=== PATIENT | female | born 1950 | race Caucasian/White ===

== ENCOUNTER 2017-08-18 08:42 | Outpatient (CLI) | payer MEDICARE | END 2017-08-18 08:43 | disposition home or self-care (01) | LOC: BICMAMMO 08:42 | PROVIDERS: ATTEND Family Medicine | DX: Z12.31 Encounter for screening mammogram for malignant neoplasm of breast (principal) | CPT/HCPCS: 77063; 77067 ==

== ENCOUNTER 2018-08-21 08:46 | Outpatient (CLI) | payer MEDICARE ==
--- NOTE | 2018-08-21 09:45 | BD ---
EXAM: DEXA bone density examination HISTORY: 68-year-old postmenopausal female for screening COMPARISON: None FINDINGS: L1--bone mineral density 1.069 g/sq cm; T score 0.7 L2--bone mineral density 0.930 g/sq cm; T score -0.9 L3--bone mineral density 0.803 g/sq cm; T score -2.6 L4--bone mineral density 0.915 g/sq cm; T score -1.3 Total L1-L4--bone mineral density 0.929 g/sq cm; T score -1.1 Left femoral neck--bone mineral density0.682; T score -1.5 Total proximal left femur--bone mineral density 0.960; T score 0.1 IMPRESSION: Osteopenia This patient has a 10 year WHO fracture risk of a major osteoporotic fracture of 9.1% and of a hip fracture of 1.1%.
--- NOTE | 2018-08-21 11:48 | MMO ---
Bilateral MAMMO Bilat Screen [facility]. CLINICAL HISTORY: Patient is 68 years old and is seen for screening. The patient has no family history of breast cancer. The patient has no personal history of cancer. The patient has a history of left needle biopsy in August, - benign and left Excisional Biopsy in 2009 - benign. VIEWS: The views performed were: bilateral craniocaudal with tomosynthesis and bilateral mediolateral oblique with tomosynthesis. FILMS COMPARED: The present examination has been compared to prior imaging studies performed at [facility] on 08/05/2011, 08/08/2012, 08/09/2013, 08/12/2014, 08/14/2015, 08/16/2016 and 08/18/2017, and at [facility] on 07/03/2007, 07/17/2008, 07/31/2009, 08/01/2009 and 08/03/2010. MAMMOGRAM FINDINGS: The breasts are heterogeneously dense, which could obscure a lesion on mammography. Finding 1: There are new calcifications with grouped or clustered distribution seen in the CC view only seen in the outer region of the right breast. Finding 2: There are stable benign appearing calcifications seen in both breasts. IMPRESSION: FINDING 1: NEW CALCIFICATIONS IN THE RIGHT BREAST REQUIRE ADDITIONAL EVALUATION. MAGNIFICATION VIEWS ARE RECOMMENDED. THE RESULTS OF THIS EXAM WERE SENT TO THE PATIENT. ACR BI-RADS Category 0 - Incomplete: Need additional imaging evaluation. [facility] will notify the patient of the need for additional imaging services. MAMMOGRAPHY NOTE: 1. A negative mammogram report should not delay a biopsy if a dominant of clinically suspicious mass is present. 2. Approximately 10% to 15% of breast cancers are not detected by mammography. 3. Adenosis and dense breasts may obscure an underlying neoplasm.
== END 2018-08-21 08:47 | disposition home or self-care (01) ==
LOC: BICMAMMO 08:46
PROVIDERS: ATTEND Family Medicine
DX: Z12.31 Encounter for screening mammogram for malignant neoplasm of breast (principal); Z78.0 Asymptomatic menopausal state; R92.1 Mammographic calcification found on diagnostic imaging of breast; M81.0 Age-related osteoporosis without current pathological fracture; M85.852 Other specified disorders of bone density and structure, left thigh
CPT/HCPCS: 77063; 77067; 77080

== ENCOUNTER 2018-08-24 13:14 | Outpatient (CLI) | payer MEDICARE ==
--- NOTE | 2018-08-24 13:58 | MMO ---
Right Breast MAMMO Unilat Diag [facility]. CLINICAL HISTORY: Patient is 68 years old and is seen for diagnostic exam. The patient has a history of left needle biopsy in August, - benign and left Excisional Biopsy in 2009 - benign. VIEWS: The views performed were: . FILMS COMPARED: The present examination has been compared to prior imaging studies performed at [facility] on 08/05/2011, 08/08/2012, 08/09/2013, 08/12/2014, 08/14/2015, 08/16/2016, 08/18/2017 and 08/21/2018, and at [facility] on 07/03/2007, 07/17/2008, 07/31/2009, 08/01/2009 and 08/03/2010. MAMMOGRAM FINDINGS: The breast is heterogeneously dense, which could obscure a lesion on mammography. The new calcs in the right outer breast (CC view only) are indeterminate and should be biopsied. IMPRESSION: FINDING IN THE RIGHT BREAST IS SUSPICIOUS. A STEREOTACTIC BREAST BIOPSY IS RECOMMENDED. THE RESULTS OF THIS EXAM WERE SENT TO THE PATIENT. ACR BI-RADS Category 4 - Suspicious abnormality - biopsy should be considered D/W pt in person @ 1355 hrs MAMMOGRAPHY NOTE: 1. A negative mammogram report should not delay a biopsy if a dominant of clinically suspicious mass is present. 2. Approximately 10% to 15% of breast cancers are not detected by mammography. 3. Adenosis and dense breasts may obscure an underlying neoplasm.
== END 2018-08-24 13:15 | disposition home or self-care (01) ==
LOC: BICMAMMO 13:14
PROVIDERS: ATTEND Family Medicine
DX: R92.1 Mammographic calcification found on diagnostic imaging of breast (principal)
CPT/HCPCS: 77065; G0279

== ENCOUNTER → 2018-09-07 | Day surgery (SDC) | payer MEDICARE ==
--- NOTE | 2018-09-07 08:55 | MMO ---
Right Breast MAMMO Unilat Diag [facility]. CLINICAL HISTORY: Patient is 68 years old and is seen for diagnostic exam. The patient has a history of left needle biopsy in August, - benign and left Excisional Biopsy in 2009 - benign. VIEWS: The views performed were: . FILMS COMPARED: The present examination has been compared to prior imaging studies performed at [facility] on 08/16/2016, 08/18/2017, 08/21/2018, 08/24/2018 and 09/07/2018. MAMMOGRAM FINDINGS: The breast is heterogeneously dense, which could obscure a lesion on mammography. There are stable calcifications with grouped or clustered distribution seen in the outer region of the right breast. Additional imaging was performed to verify location for needle localization. IMPRESSION: STABLE CALCIFICATIONS IN THE RIGHT BREAST ARE SUSPICIOUS. BIOPSY IS RECOMMENDED. THE RESULTS OF THIS EXAM WERE SENT TO THE PATIENT. ACR BI-RADS Category 4 - Suspicious abnormality - biopsy should be considered MAMMOGRAPHY NOTE: 1. A negative mammogram report should not delay a biopsy if a dominant of clinically suspicious mass is present. 2. Approximately 10% to 15% of breast cancers are not detected by mammography. 3. Adenosis and dense breasts may obscure an underlying neoplasm.
--- NOTE | 2018-09-07 11:26 | MMO ---
RIGHT UNILATERAL DIAGNOSTIC MAMMOGRAM: Date: 09/07/18 HISTORY: Breast calcifications which were recommended for biopsy, which were felt to be new calcifications whe n compared to old exams. TECHNIQUE: The patient was initially placed on the stereotactic machine, but the calcifications which are very f aint are never visualized on the stereotactic unit. The patient was subsequently transferred to [facility] the mammogram to assure that the calcifications were still present. The calcifications are confirme d in the outer and slightly inferior right breast, and therefore could be localized using needle loca lization. The options of a 6 month follow-up or needle localization were discussed with the patient, but patient was uncomfortable with follow-up and given that the calcifications are new, biopsy is not unreasonable and would have to be performed as a needle localization procedure and surgical excision . IMPRESSION: 1. Unsuccessful stereotactic biopsy. Calcifications are confirmed within the outer and slightly infe rior right breast, and needle localization could be performed. The fact that the stereotactic biopsy was not performed and the ability to do needle localization was discussed with Radha at Dr. Holt's office. 2. BIRADS Category 4 - Suspicious abnormality. Needle localization for surgical biopsy is recommende d. POS: [facility]
== END ==
LOC: MAMMO 06:48
PROVIDERS: ATTEND Family Medicine
PROC: 0HBT3ZX Excision of Right Breast, Percutaneous Approach, Diagnostic (ICD-10-PCS; principal; 2018-09-07)
DX: R92.1 Mammographic calcification found on diagnostic imaging of breast (principal)
CPT/HCPCS: 19081; 77065; G0279

== ENCOUNTER 2018-09-08 11:11 | Outpatient (CLI) | payer MEDICARE ==
[2018-09-08 12:38] LABS: #Basophils 0.1 thou/uL (0.0-0.2); #Eosinphils 0.2 thou/uL (0.0-0.7); #Lymphocytes 2.8 thou/uL (1.20-3.40); #Monocytes 0.4 thou/uL (0.11-0.59); #Neutrophils 3.9 thou/uL (1.40-6.50); %Basophils 0.7 % (0.0-1.0); %Eosinophils 2.1 % (0.0-10.0); %Lymphocytes 38.7 % (21.0-51.0); %Monocytes 4.8 % (0.0-10.0); %Neutrophils 53.6 % (42.0-75.0); Hemoglobin 14.4 g/dL (12.0-16.0); Mean Corpuscular HGB CONC 33.4 g/dL (32.0-36.0); Mean Corpuscular Hemoglobin 29.1 pg (27.0-31.0); Mean Corpuscular Volume 87.1 fL (78.0-98.0); Mean Platelet Volume 8.3 fL (7.4-10.4); Platelet Count 350 thou/uL (130-400); RBC Distribution Width 12.4 % (11.5-14.5); Red Blood Cell (RBC) Count 4.95 mill/uL (4.20-5.40); White Blood Cell (WBC) Count 7.3 thou/uL (4.8-10.8)
== END 2018-09-08 11:12 | disposition home or self-care (01) ==
LOC: LABBT 11:11
PROVIDERS: ATTEND Surgery
DX: Z01.818 Encounter for other preprocedural examination (principal); R92.0 Mammographic microcalcification found on diagnostic imaging of breast
CPT/HCPCS: 36415; 80053; 85025; 93005; 93010

== ENCOUNTER 2018-09-14 06:51 | Day surgery (SDC) | payer MEDICARE ==
[2018-09-08 11:34] VITALS: BMI 32.3
[2018-09-14] MEDS ORDERED: Lidocaine 2% PF 5 ML VIAL ONE (08:34)
[2018-09-14] MEDS ORDERED: Bupivacaine/Epinephrine 0.25% 30 ML VIAL ONE (08:34)
[2018-09-14] MEDS ORDERED: Fentanyl 100 MCG/2 ML VIAL ONE (08:43)
[2018-09-14] MEDS ORDERED: Midazolam HCl 2 mg/2 ml Vial ONE (08:43)
[2018-09-14] MEDS ORDERED: Levofloxacin 500 mg/D5W 100 ml Premix Bag ONE (09:00)
--- NOTE | 2018-09-14 10:00 | MMO ---
Mammographic guided needle localization right breast microcalcifications. Surgical specimen mammography right breast biopsy HISTORY: After explaining the procedure and answering all questions, the subtle microcalcification cl uster within the lateral aspect of the right breast was visualized. Sterile technique, buffered local anesthesia, mammographic guidance, and a lateral approach were used to carefully advanced a 7.5 cm [place] needle and wire to lie immediately deep to the microcalcification cluster. Final images were marked. Patient tolerated the procedure well and was transferred to day surgery in good condition. Evaluation of the surgical specimen obtained by Dr. Rice shows scattered microcalcifications of th e cluster along one side of the sample. IMPRESSION: Technically successful needle localization right breast microcalcifications.
[2018-09-14] MEDS ORDERED: Promethazine HCl 25 MG/ML VIAL ONE (11:27)
[2018-09-14] MEDS ORDERED: HYDROcodone/Acetaminophen 5/325 mg Tablet ONE (12:27)
[2018-09-14] MEDS ORDERED: Dexamethasone 20 MG/5 ML VIAL ONE (14:50)
[2018-09-14] MEDS ORDERED: Ondansetron PF 4 MG/2 ML Vial ONE (14:50)
[2018-09-14] MEDS ORDERED: PROPOFOL 200 MG/20 ML VIAL ONE (14:50)
--- NOTE | 2018-09-15 14:13 | OP ---
DATE OF PROCEDURE: 09/14/2018 PREOPERATIVE DIAGNOSIS: Abnormality in the right breast not amenable to stereotactic or ultrasound-guided needle biopsy. POSTOPERATIVE DIAGNOSIS: Abnormality in the right breast not amenable to stereotactic or ultrasound-guided needle biopsy. PROCEDURE PERFORMED: Right breast excision of abnormality under needle localization. ANESTHESIA: General. ESTIMATED BLOOD LOSS: Minimal. COMPLICATIONS: None. SPECIMEN: Marked with two short superior, one long lateral, sent to Path for final diagnosis. DESCRIPTION OF PROCEDURE: The patient was taken to the operating room and laid supine on the operating room table. After general anesthetic was obtained, the right breast was prepped and draped in a sterile fashion. A diagonal incision was made from nipple down towards the right lower quadrant of breast. Flaps were raised superior medially and inferior laterally around the needle localization wire. Specimen was removed using two short superior and one long lateral, sent to Path for final diagnosis. Meticulous hemostasis obtained in the wound bed. Specimen x-ray reveals the abnormality to be in the specimen. The wound was closed using 3-0 Vicryl, 4-0 Monocryl, and Dermabond. The patient was then returned to Recovery in stable condition. All instrument counts, needle counts, and lap counts were correct. Job ID: [id number]
== END 2018-09-14 13:20 | disposition home or self-care (01) ==
LOC: SDC 06:51
PROVIDERS: ATTEND Surgery
PROC: 0HBT0ZX Excision of Right Breast, Open Approach, Diagnostic (ICD-10-PCS; principal; 2018-09-14)
DX: D24.1 Benign neoplasm of right breast (principal); N60.91 Unspecified benign mammary dysplasia of right breast; R92.0 Mammographic microcalcification found on diagnostic imaging of breast; I10 Essential (primary) hypertension; E78.5 Hyperlipidemia, unspecified; E03.9 Hypothyroidism, unspecified; K21.9 Gastro-esophageal reflux disease without esophagitis; G62.9 Polyneuropathy, unspecified; Z79.82 Long term (current) use of aspirin; Z79.899 Other long term (current) drug therapy; Z88.0 Allergy status to penicillin; Z88.8 Allergy status to other drugs, medicaments and biological substances; Z98.890 Other specified postprocedural states; Z90.12 Acquired absence of left breast and nipple
CPT/HCPCS: 19281; 76098; 88307; 88341; 88342; J1100; J1956; J2001; J2250; J2405; J2550; J2704; J3010

== ENCOUNTER 2018-09-20 08:34 | Outpatient (CLI) | payer MEDICARE ==
--- NOTE | 2018-09-20 09:24 | ULT ---
RIGHT UPPER QUADRANT ULTRASOUND: HISTORY: Increasing liver enzymes. FINDINGS: The liver demonstrates increased echogenicity consistent with fatty infiltration. No focal mass or i ntrahepatic ductal dilatation is seen. No gallstones, gallbladder wall thickening, or pericholecysti c fluid is seen. The common duct measures 4 mm in diameter. The right kidney measures 13 cm in rain th is normal. The visualized portions of the pancreas are unremarkable. No free fluid is seen in th e Morison's pouch. IMPRESSION: 1. Fatty liver. 2. No evidence of cholelithiasis. POS: [facility]
[2018-09-20 12:23] LABS: HBCM Index 0.06 S/CO (0-0.79); HBSAg Index 0.34 S/CO (0-0.99); Hep A IgM AB Non-Reactive (NonReactive); Hep A IgM S/CO 0.16 S/CO (0-0.79); Hep B Surf Ag Non-Reactive S/CO (NonReactive); Hep C IgG Ab Non-Reactive (NonReactive); Hep C Index 0.14 S/CO (0-0.79); Hepatitis B Core IgM Abs Non-Reactive (NonReactive)
== END 2018-09-20 08:35 | disposition home or self-care (01) ==
LOC: SCSULT 08:34
PROVIDERS: ATTEND Family Medicine
DX: R74.0 Nonspecific elevation of levels of transaminase and lactic acid dehydrogenase [LDH] (principal); K76.0 Fatty (change of) liver, not elsewhere classified
CPT/HCPCS: 36415; 76705; 80074

== ENCOUNTER 2019-01-16 07:55 | Outpatient (CLI) | payer MEDICARE ==
--- NOTE | 2019-01-16 09:19 | CT ---
CT ABDOMEN WITH AND WITHOUT IV CONTRAST 01/16/2019 CLINICAL INFORMATION: Elevated levels of transaminase. COMPARISON: Noncontrast CT abdomen and pelvis on 12/13/2016. Technique: Multiple contiguous axial CT images are obtained through the abdomen and pelvis with IV contrast. Cor onal reformatted images are provided. FINDINGS: Lower Chest: Minimal bibasilar atelectasis versus scarring is present. Vessels: The abdominal aorta is normal in caliber. Abdomen: Portal vein:Patent Gallbladder: Within normal limits for CT imaging. Liver: Diminished attenuation likely attributable to diffuse fatty infiltration with small focal area of fatty sparing adjacent to the gallbladder. A small hepatic granuloma is present in the dome of the liver. No focal hepatic lesion is seen. There is no evidence of biliary ductal dilatation. The li jorge is mildly enlarged measuring 19.5 cm in craniocaudal dimensions. Spleen: within normal limits. Small peripherally calcified splenic artery aneurysm is noted measuring 8 mm which is stable when compared to the prior exam and also stable when compared to prior study on 10/25/2013. Pancreas: within normal limits. Adrenals: There is a tiny calcification involving the left adrenal gland which may related to either prior adrenal hemorrhage versus calcified granuloma. Kidneys: Subcentimeter too small to characterize hypodense lesion is seen in the inferior pole left k idney. The kidneys otherwise have a normal CT appearance bilaterally. No renal or ureteral calculi are seen bilaterally, and there is no evidence of an enhancing renal mass. Bowel: A few scattered colonic diverticula are noted in the abdomen. Loops of small bowel are normal in caliber. Appendix: Partially imaged and where seen is normal in caliber. Peritoneum: No ascites or free air; no fluid collection. Mesentery and Retroperitoneum: No enlarged mesenteric or retroperitoneal lymph nodes. Abdominal Wall: A tiny fat-containing umbilical hernia is again present. Bones: Degenerative changes are seen in the spine greatest at the L2-3 level with prominent endplate degenerative changes and narrowing of the intervertebral disc space. IMPRESSION: 1. Mild hepatomegaly with fatty infiltration of the liver. 2. No biliary ductal dilatation is seen. 3. Subcentimeter too small to characterize hypodense lesion inferior pole left kidney. 4. Colonic diverticulosis.
[2019-01-16] MEDS ORDERED: Iopamidol 370 76% 100 ML VIAL ONE (11:07)
== END 2019-01-16 07:56 | disposition home or self-care (01) ==
LOC: CT 07:55
PROVIDERS: ATTEND Family Medicine
DX: R74.0 Nonspecific elevation of levels of transaminase and lactic acid dehydrogenase [LDH] (principal); K76.0 Fatty (change of) liver, not elsewhere classified; N28.89 Other specified disorders of kidney and ureter; K57.30 Diverticulosis of large intestine without perforation or abscess without bleeding
CPT/HCPCS: 74170; Q9967

== ENCOUNTER 2020-01-09 12:27 | Outpatient (CLI) | payer MEDICARE ==
--- NOTE | 2020-01-09 13:45 | ULT ---
HEPATIC ULTRASOUND WITH PRIETO SCALE AND COLOR FLOW AND SPECTRAL DOPPLER IMAGING: HISTORY: Abnormal liver function. FINDINGS: The gallbladder is contracted (the patient is not fasting). No definite gallstones, gallbladder wall thickening, or pericystic fluid are seen. The liver demonstrates increased echogenicity concerning for fatty infiltration with focal sparing ad jacent to the gallbladder. No focal mass or intrahepatic ductal dilatation is seen. The spleen is normal measuring 11 cm. No free fluid is identified. The common duct measures 4 mm in diameter. The pancreas is normal. There is normal spectral waveforms in the hepatic, portal, and splenic vasculature. IMPRESSION: Fatty infiltration of the liver. POS: [facility]
== END 2020-01-09 12:28 | disposition home or self-care (01) ==
LOC: BICULT 12:27
PROVIDERS: ATTEND Internal Medicine Gastroenterology
DX: E66.9 Obesity, unspecified (principal); R94.5 Abnormal results of liver function studies; K76.0 Fatty (change of) liver, not elsewhere classified
CPT/HCPCS: 76705

== ENCOUNTER 2020-12-09 08:12 | Outpatient (CLI) | payer MEDICARE | END 2020-12-09 08:13 | disposition home or self-care (01) | LOC: BICMAMMO 08:12 | PROVIDERS: ATTEND Family Medicine | DX: Z12.31 Encounter for screening mammogram for malignant neoplasm of breast (principal); Z91.89 Other specified personal risk factors, not elsewhere classified | CPT/HCPCS: 77063; 77067 ==

== ENCOUNTER 2021-01-27 09:25 | Outpatient (CLI) | payer MEDICARE | END 2021-01-27 09:26 | disposition home or self-care (01) | LOC: BICMAMMO 09:25 | PROVIDERS: ATTEND Family Medicine | DX: Z13.820 Encounter for screening for osteoporosis (principal); Z78.0 Asymptomatic menopausal state; M85.89 Other specified disorders of bone density and structure, multiple sites | CPT/HCPCS: 77080 ==

== ENCOUNTER 2021-12-10 07:58 | Outpatient (CLI) | payer MEDICARE | END 2021-12-10 07:59 | disposition home or self-care (01) | LOC: BICMAMMO 07:58 | PROVIDERS: ATTEND Family Medicine | DX: Z12.31 Encounter for screening mammogram for malignant neoplasm of breast (principal); Z91.89 Other specified personal risk factors, not elsewhere classified | CPT/HCPCS: 77063; 77067 ==

== ENCOUNTER 2023-01-26 12:10 | Outpatient (CLI) | payer MEDICARE | END 2023-01-26 12:11 | disposition home or self-care (01) | LOC: BICMAMMO 12:10 | PROVIDERS: ATTEND Family Medicine | DX: Z12.31 Encounter for screening mammogram for malignant neoplasm of breast (principal); Z13.820 Encounter for screening for osteoporosis; M85.89 Other specified disorders of bone density and structure, multiple sites; Z78.0 Asymptomatic menopausal state; Z91.89 Other specified personal risk factors, not elsewhere classified | CPT/HCPCS: 77063; 77067; 77080 ==

== ENCOUNTER 2024-02-29 07:53 | Outpatient (CLI) | payer MEDICARE | END 2024-02-29 07:54 | disposition home or self-care (01) | LOC: BICMAMMO 07:53 | PROVIDERS: ATTEND Family Medicine | DX: Z12.31 Encounter for screening mammogram for malignant neoplasm of breast (principal); Z91.89 Other specified personal risk factors, not elsewhere classified | CPT/HCPCS: 77063; 77067 ==

== ENCOUNTER 2024-12-18 09:40 | Outpatient (CLI) | payer MEDICARE | END 2024-12-18 09:41 | disposition home or self-care (01) | LOC: SCSRAD 09:40 | PROVIDERS: ATTEND Family Medicine | DX: M25.562 Pain in left knee (principal); E03.9 Hypothyroidism, unspecified | CPT/HCPCS: 36415; 84439; 84443; 84481 ==

== ENCOUNTER 2025-03-01 09:04 | Outpatient (CLI) | payer MEDICARE | END 2025-03-01 09:05 | disposition home or self-care (01) | LOC: BICMAMMO 09:04 | PROVIDERS: ATTEND Family Medicine | DX: Z12.31 Encounter for screening mammogram for malignant neoplasm of breast (principal); Z78.0 Asymptomatic menopausal state; Z91.89 Other specified personal risk factors, not elsewhere classified; N64.89 Other specified disorders of breast; M85.859 Other specified disorders of bone density and structure, unspecified thigh | CPT/HCPCS: 77063; 77067; 77080 ==